=== PATIENT | female | born 1940 | race Caucasian/White ===

== ENCOUNTER 2017-06-11 10:17 | Emergency (ER) | payer MEDICARE ==
[2017-06-11] MEDS ORDERED: SODIUM CHLORIDE 0.9% 500 ML IV STA (10:36)
--- NOTE | 2017-06-11 10:40 | ED ---
General Adult HPI - General Chief complaint: Chest Pain Stated complaint: chest/back pain, spasming, brandon Time Seen by Provider: 06/11/17 10:31 Source: patient, RN notes reviewed Mode of arrival: wheelchair Limitations: no limitations - History of Present Illness Initial comments: 76-year-old female presents to the emergency department with a chief complaint of pain all the way from the back of her neck to her hips. Patient states it wraps around it causes her some chest discomfort as well. Patient states sometimes she has shortness of breath with it. Patient states that it is a pain that will intensify in the last 10. Patient states she feels as if something may be out of place. Patient denies any falls traumas or injuries. Patient is a smoker. Patient states that she did have something similar to this she was in physical therapy for back issues but she had to stop that. Patient was concerned due to the severity of her discomfort in the back anymore so she thought that she should be seen. Patient has tried Motrin and Tylenol for her pain without any improvement. Patient denies any lower abdominal pain. Patient denies any nausea or vomiting. Patient denies any recent fever, chills , abdominal pain, nausea vomiting, numbness or tingling, dysuria or hematuria, constipation or diarrhea, headaches or visual changes, or any other current symptoms. - Related Data Previous Rx's Medication Instructions Recorded ALPRAZolam [Xanax] 0.25 mg PO Q8HR #10 tab 06/11/17 Allergies Allergy/AdvReac Type Severity Reaction Status Date / Time codeine AdvReac Nausea & Verified 06/11/17 10:25 Vomiting pain medication AdvReac Nausea & Uncoded 06/11/17 10:25 Vomiting Review of Systems ROS Statement: Those systems with pertinent positive or pertinent negative responses have been documented in the HPI. ROS Other: All systems not noted in ROS Statement are negative. Past Medical History Past Medical History: CVA/TIA, Hypertension Additional Past Medical History / Comment(s): bleeding ulcer History of Any Multi-Drug Resistant Organisms: None Reported Past Surgical History: Joint Replacement, Orthopedic Surgery Additional Past Surgical History / Comment(s): left rotator cuff repair, left total hip Past Psychological History: No Psychological Hx Reported Smoking Status: Current every day smoker Past Alcohol Use History: Rare Past Drug Use History: None Reported General Exam - General Exam Comments Initial Comments: General: The patient is awake and alert, in no distress, and does not appear acutely ill. Eye: Pupils are equal, round and reactive to light, extra-ocular movements are intact; there is normal conjunctiva bilaterally. No signs of icterus. Ears, nose, mouth and throat: There are moist mucous membranes and no oral lesions. Neck: The neck is supple, there is no tenderness. Cardiovascular: There is a regular rate and rhythm. No murmur, rub or gallop is appreciated. Respiratory: Lungs are clear to auscultation, respirations are non-labored, breath sounds are equal. No wheezes, stridor, rales, or rhonchi. Tenderness patient along the left lateral chest wall Gastrointestinal: Soft, non-distended, non-tender abdomen without masses or organomegaly noted. There is no rebound or guarding present. No CVA tenderness. Bowel sounds are unremarkable. Back: There is diffuse tenderness to palpation in the midline. There is no obvious deformity. No rashes noted. Musculoskeletal: Normal ROM, no tenderness, There is no pedal edema. There is no calf tenderness or swelling. Sensation intact. Pulses equal bilaterally 2+. Neurological: CN II-XII intact, There are no obvious motor or sensory deficits. Coordination appears grossly intact. Speech is normal. Skin: Skin is warm and dry and no rashes or lesions are noted. Psychiatric: Cooperative, appropriate mood & affect, normal judgment. Limitations: no limitations Course Vital Signs 06/11/17 06/11/17 10:21 12:55 Temperature 96.9 F L Pulse Rate 72 67 Respiratory 18 18 Rate Blood Pressure 144/60 123/58 O2 Sat by Pulse 97 97 Oximetry Medical Decision Making - Medical Decision Making 76-year-old female presents for neck through lower back pain associated with chest pain. This time suspicion for muscle skeletal origin. At this time patient's imaging and lab work is been reviewed. This tenderness. Be degenerative disc disease diffusely. She states she has been told this in the past. He states this feels much like that. This time we discussed continued care we discussed control of pain. We discussed return parameters. We discussed follow-up. We discussed all the patient and questions. They stated the Robin they are in agreement with plan. All questions have been answered. They will be discharged home. - Lab Data Result diagrams: 06/11/17 11:12 06/11/17 11:12 Lab Results 06/11/17 06/11/17 06/11/17 Range/Units 11:12 11:12 11:12 WBC 6.8 (3.8-10.6) k/uL RBC 4.07 (3.80-5.40) m/uL Hgb 13.3 (11.4-16.0) gm/dL Hct 39.1 (34.0-46.0) % MCV 96.2 (80.0-100.0) fL MCH 32.7 (25.0-35.0) pg MCHC 33.9 (31.0-37.0) g/dL RDW 12.6 (11.5-15.5) % Plt Count 373 (150-450) k/uL Neutrophils % 61 % Lymphocytes % 27 % Monocytes % 6 % Eosinophils % 3 % Basophils % 1 % Neutrophils # 4.1 (1.3-7.7) k/uL Lymphocytes # 1.8 (1.0-4.8) k/uL Monocytes # 0.4 (0-1.0) k/uL Eosinophils # 0.2 (0-0.7) k/uL Basophils # 0.1 (0-0.2) k/uL PT (9.0-12.0) sec INR (<1.2) APTT (22.0-30.0) sec D-Dimer (<0.60) mg/L FEU Sodium 137 (137-145) mmol/L Potassium 4.7 (3.5-5.1) mmol/L Chloride 107 (98-107) mmol/L Carbon Dioxide 22 (22-30) mmol/L Anion Gap 8 mmol/L BUN 13 (7-17) mg/dL Creatinine 0.56 (0.52-1.04) mg/dL Est GFR (MDRD) Af Amer >60 (>60 ml/min/1.73 sqM) Est GFR (MDRD) Non-Af >60 (>60 ml/min/1.73 sqM) Glucose 99 (74-99) mg/dL Calcium 9.6 (8.4-10.2) mg/dL Magnesium 2.0 (1.6-2.3) mg/dL Total Bilirubin 1.1 (0.2-1.3) mg/dL AST 32 (14-36) U/L ALT 34 (9-52) U/L Alkaline Phosphatase 71 (38-126) U/L Total Creatine Kinase 78 (30-135) U/L CK-MB (CK-2) 1.2 (0.0-2.4) ng/mL CK-MB (CK-2) Rel Index 1.5 Troponin I <0.012 (0.000-0.034) ng/mL Total Protein 7.1 (6.3-8.2) g/dL Albumin 4.5 (3.5-5.0) g/dL 06/11/17 Range/Units 11:12 WBC (3.8-10.6) k/uL RBC (3.80-5.40) m/uL Hgb (11.4-16.0) gm/dL Hct (34.0-46.0) % MCV (80.0-100.0) fL MCH (25.0-35.0) pg MCHC (31.0-37.0) g/dL RDW (11.5-15.5) % Plt Count (150-450) k/uL Neutrophils % % Lymphocytes % % Monocytes % % Eosinophils % % Basophils % % Neutrophils # (1.3-7.7) k/uL Lymphocytes # (1.0-4.8) k/uL Monocytes # (0-1.0) k/uL Eosinophils # (0-0.7) k/uL Basophils # (0-0.2) k/uL PT 10.9 (9.0-12.0) sec INR 1.1 (<1.2) APTT 24.5 (22.0-30.0) sec D-Dimer 1.10 H (<0.60) mg/L FEU Sodium (137-145) mmol/L Potassium (3.5-5.1) mmol/L Chloride (98-107) mmol/L Carbon Dioxide (22-30) mmol/L Anion Gap mmol/L BUN (7-17) mg/dL Creatinine (0.52-1.04) mg/dL Est GFR (MDRD) Af Amer (>60 ml/min/1.73 sqM) Est GFR (MDRD) Non-Af (>60 ml/min/1.73 sqM) Glucose (74-99) mg/dL Calcium (8.4-10.2) mg/dL Magnesium (1.6-2.3) mg/dL Total Bilirubin (0.2-1.3) mg/dL AST (14-36) U/L ALT (9-52) U/L Alkaline Phosphatase (38-126) U/L Total Creatine Kinase (30-135) U/L CK-MB (CK-2) (0.0-2.4) ng/mL CK-MB (CK-2) Rel Index Troponin I (0.000-0.034) ng/mL Total Protein (6.3-8.2) g/dL Albumin (3.5-5.0) g/dL - Radiology Data Radiology results: report reviewed, image reviewed Disposition Clinical Impression: Costochondral chest pain, Degenerative cervical disc, Degenerative disc disease , thoracic Disposition: HOME SELF-CARE Condition: Stable Instructions: Costochondritis (ED), Degenerative Disc Disease (ED) Additional Instructions: Please use medication as discussed. Please follow up with family doctor if symptoms have not improved over the next two days. Please return to the emergency room if your symptoms increase or worsen or for any other concerns. Prescriptions: ALPRAZolam [Xanax] 0.25 mg PO Q8HR #10 tab Referrals: Brenda Goodson MD [STAFF PHYSICIAN] - 1-2 days Time of Disposition: 13:32
[2017-06-11 11:23] LABS: Basophils # (A) 0.1 k/uL (0-0.2); Basophils % (A) 1 %; CH 32.3; CHCM 33.7; Eosinophils # (A) 0.2 k/uL (0-0.7); Eosinophils % (A) 3 %; HCT 39.1 % (34.0-46.0); HDW 2.36; HGB 13.3 gm/dL (11.4-16.0); Luc # (Auto) 0.22; Luc % (Auto) 3; Lymphocytes # (A) 1.8 k/uL (1.0-4.8); Lymphocytes % (A) 27 %; MCH 32.7 pg (25.0-35.0); MCHC 33.9 g/dL (31.0-37.0); MCV 96.2 fL (80.0-100.0); Mean Platelet Volume 6.5; Monocytes # (A) 0.4 k/uL (0-1.0); Monocytes % (A) 6 %; Neutrophils # (A) 4.1 k/uL (1.3-7.7); Neutrophils % (A) 61 %; RBC 4.07 m/uL (3.80-5.40); RDW 12.6 % (11.5-15.5); WBC 6.8 k/uL (3.8-10.6); WBC (Perox) 6.91
[2017-06-11 11:37] LABS: Anion Gap 8 mmol/L; Calcium 9.6 mg/dL (8.4-10.2); Carbon Dioxide 22 mmol/L (22-30); Chloride 107 mmol/L (98-107); Glucose 99 mg/dL (74-99); Non-African American GFR(MDRD) >60 (>60 ml/min/1.73 sqM); Sodium 137 mmol/L (137-145); Total Bilirubin 1.1 mg/dL (0.2-1.3)
[2017-06-11 11:38] LABS: ALT 34 U/L (9-52); AST 32 U/L (14-36); Alkaline Phosphatase 71 U/L (38-126); Blood Urea Nitrogen 13 mg/dL (7-17); Potassium 4.7 mmol/L (3.5-5.1); Total Protein 7.1 g/dL (6.3-8.2)
[2017-06-11 11:40] LABS: INR 1.1 (<1.2); Partial Thromboplastin Time 24.5 sec (22.0-30.0); Prothrombin Time 10.9 sec (9.0-12.0)
[2017-06-11 11:50] LABS: Creatine Kinase 78 U/L (30-135)
[2017-06-11] MEDS ORDERED: RX INFO: IV CONTRAST WAS GIVEN 1 EACH MISC MISCELLANE PRN (11:53)
[2017-06-11 12:04] LABS: Creatine Kinase MB 1.2 ng/mL (0.0-2.4); Troponin I <0.012 ng/mL (0.000-0.034)
--- NOTE | 2017-06-11 12:52 | CT ---
EXAMINATION TYPE: CT angio chest DATE OF EXAM: 06/11/2017 12:39 PM COMPARISON: None. HISTORY: Chest pain, spasming, TAURUS CT DLP: 146.90 mGycm Automated exposure control for dose reduction was used. CONTRAST: CTA scan of the thorax is performed with IV Contrast, patient injected with 100 ml mL of Omnipaque 35 0, pulmonary embolism protocol. . FINDINGS: There are fairly severe changes of emphysema throughout the lungs. There is some dependent atelectasis at the lung bases. There is a small area of consolidation in the medial aspect of the lef t upper lobe. There is no significant axillary, internal mammary, mediastinal or hilar adenopathy. There is no evidence of pulmonary embolus. The aorta is normal in caliber without evidence of dissection. There is no pleural or pericardial fluid. The heart is not enlarged. There is a 2.6 cm well-defined lesion in the posterior segment of the right lobe of the liver. This l ikely represents a cyst. There is a well-defined 4.4 cm hypoattenuating lesion arising from the upper pole of the left kidney. This also likely represents a cyst. Remaining aspect of the visualized upper abdomen are unremarkabl e. There is mild hypertrophic spondylosis within the spine. IMPRESSION: 1. THIS EXAMINATION IS NEGATIVE FOR PULMONARY EMBOLUS. 2. EXTENSIVE CHANGES OF EMPHYSEMA. 3. PROBABLE CYSTIC CHANGE IN THE LIVER AND LEFT KIDNEY. THIS COULD BE CONFIRMED WITH ULTRASOUND. 4. MILD DEGENERATIVE CHANGE WITHIN THE SPINE.
--- NOTE | 2017-06-11 12:56 | CT ---
EXAMINATION TYPE: CT cervical spine wo con DATE OF EXAM: 06/11/2017 COMPARISON: NONE HISTORY: Chest pain, spasming and TAURUS CT DLP: 300.50 mGycm Automated exposure control for dose reduction was used. TECHNIQUE: CT scan of the cervical spine is obtained without contrast, axial images are obtained, sa gittal and coronal reformatted images are also reviewed. FINDINGS: There are extensive emphysematous changes in the visualized portions of the lungs. Prevertebral soft tissues are normal. There is a mild reversal of the normal cervical lordosis. Alignment is maintained. Atlantoaxial relat ionships are normal. There is diffuse degenerative disc disease and hypertrophic spondylosis with relative sparing of C2-3 . There is diffuse uncovertebral joint disease. There is facet arthropathy, most marked at C3-4 but a lso present at C4-5 and C5-6. There is mild, bilateral intervertebral foraminal narrowing at C3-4. There is a mixed spondylitic bar posteriorly deforming the thecal sac. There is bilateral intervertebral foraminal narrowing at C4-5, worse on the left than the right. Ther e is a mixed spondylitic bar posteriorly deforming the thecal sac. At C5-6, there is bilateral intervertebral foraminal narrowing. There is a mixed spondylitic bar post eriorly deforming the thecal sac and causing mild central canal stenosis. At C6-7, there is mild, bilateral intervertebral foraminal narrowing. There is hypertrophic spondylos is and a small mixed spondylitic bar posteriorly deforming the thecal sac. At C7-T1 the intervertebral foramina are well maintained. There is no significant compressive discopa thy. There is mild uncovertebral joint disease. The facets are unremarkable. IMPRESSION: 1. NO ACUTE OSSEOUS LESION. 2. EXTENSIVE DEGENERATIVE CHANGE. 3. MULTILEVEL INTERVERTEBRAL FORAMINAL NARROWING.
--- NOTE | 2017-06-11 13:03 | XR ---
EXAMINATION TYPE: XR chest 2V DATE OF EXAM: 06/11/2017 HISTORY: Chest Pain. REFERENCE: NONE. FINDINGS: The lungs are overinflated but clear. Pleural spaces are clear. The heart is not enlarged. IMPRESSION: COPD.
[2017-06-11] MEDS ORDERED: HYDROmorphone 1 MG/ML 1 ML SYRINGE IVP STA (13:08)
[2017-06-11] MEDS ORDERED: ACETAMINOPHEN TAB 500 MG TAB PO STA (13:33)
[2017-06-11 13:47] VITALS: BP 121/60; PULSE 56; RESP 16; TEMP 97.3
== END 2017-06-11 14:25 | disposition home or self-care (01) ==
LOC: EC 10:17
DX: R07.89 Other chest pain (principal); M50.30 Other cervical disc degeneration, unspecified cervical region; M51.34 Other intervertebral disc degeneration, thoracic region; F17.200 Nicotine dependence, unspecified, uncomplicated; Z86.14 Personal history of Methicillin resistant Staphylococcus aureus infection; Z53.8 Procedure and treatment not carried out for other reasons; Z88.5 Allergy status to narcotic agent; Z88.8 Allergy status to other drugs, medicaments and biological substances
CPT/HCPCS: 36415; 93005; 85379; 80053; 82550; 82553; 83735; 84484; 85025; 85610; 85730; 71020; 72125; 71275; 99285; 96360; 96361 ×2; Q9967